=== PATIENT | female | born 1950 | race Caucasian/White ===

== ENCOUNTER 2022-06-27 01:59 | Emergency (ER) | payer SELFPAY ==
[~2022-06-27] VITALS: Ht 165.1 cm; Wt 66.0 kg
[2022-06-27 04:40] VITALS: BP 155/74
== END 2022-06-27 04:50 | disposition home or self-care (01) ==
LOC: ER 01:59 → EDBD 01:59 → ER 04:50
DX: T38.3X1A Poisoning by insulin and oral hypoglycemic [antidiabetic] drugs, accidental (unintentional), initial encounter (principal); I49.9 Cardiac arrhythmia, unspecified; Y92.9 Unspecified place or not applicable
CPT/HCPCS: 82962; 93005; 99283